=== PATIENT | male | born 1960 | race Caucasian/White ===

== ENCOUNTER 2023-05-17 07:32 | Day surgery (SDC) | payer BC ==
[~2023-05-17] VITALS: Ht 193 cm; Wt 87.7 kg
[2023-05-17] MEDS ORDERED: CODACE30 (07:43)
[2023-05-17 09:42] VITALS: BP 96/63
== END 2023-05-17 09:52 | disposition home or self-care (01) ==
LOC: ORSCSDS 07:32
PROVIDERS: Internal Medicine Gastroenterology
PROC: 0DBP8ZX Excision of Rectum, Via Natural or Artificial Opening Endoscopic, Diagnostic (ICD-10-PCS; principal; 2023-05-17 08:45)
DX: Z12.11 Encounter for screening for malignant neoplasm of colon (principal); Z80.0 Family history of malignant neoplasm of digestive organs; K62.1 Rectal polyp; Z85.46 Personal history of malignant neoplasm of prostate; K64.8 Other hemorrhoids; K57.30 Diverticulosis of large intestine without perforation or abscess without bleeding; F90.9 Attention-deficit hyperactivity disorder, unspecified type; E55.9 Vitamin D deficiency, unspecified; Z79.899 Other long term (current) drug therapy
CPT/HCPCS: 88305; J2704; J7120

== ENCOUNTER → 2024-06-12 | Outpatient (CLI) | payer BC ==
[~2024-06-12] MED LIST: CODACE30
== END ==
LOC: LAB 15:15 → LAB SHORT 15:15
DX: L82.1 Other seborrheic keratosis (principal)
CPT/HCPCS: 88305